=== PATIENT | male | born 1995 | race Asian ===

== ENCOUNTER 2018-11-05 14:13 | Emergency (ER) | payer OTHER, SELFPAY ==
[2018-11-05 14:33] VITALS: BP 95/48; PULSE 57; RESP 16; TEMP 36.8; O2SAT 98
--- NOTE | 2018-11-05 14:38 | DI.RAD_ITS ---
SYMPTOM/DIAGNOSIS: MEDIAL KNEE PAIN, SKIING INJURY LEFT KNEE: Three views. No acute fracture or dislocation is seen. The soft tissues are unremarkable. IMPRESSION: Normal examination.
--- NOTE | 2018-11-05 15:49 | W.ED.GENAD ---
Discharge Plan Disposition Patient Disposition: HOME Condition: Stable Discharge Details Chief Complaint: Orthopedic Clinical Impression: Left knee sprain Primary Care Provider: [facility]itz[facility]Local ED Provider: Jeremy Acosta Home Meds and New Rx's Prescriptions: No Action No Known Home Meds RF: 0 Discharge Instructions Instructions: Knee Sprain (ED), RICE Therapy (ED) Additional Instructions: You may continue to use acetaminophen as needed for discomfort and wear the knee brace at all times for the next 2 weeks. You may slowly advance activity as tolerated and if pain is significant or severe is recommended that you purchase and use crutches for 2-3 days to rest the knee further. Follow-up with a local orthopedist or your primary care doc for reassessment if not improving over the next 2-weeks. Referrals: Primary Care Provider [Outside] Discharge Data Discharge Date/Time-TO BE ENTERED AT DEPARTURE: 11/05/18 15:59 Medical Decision Making Patient presenting the emergency department chief complaint of left knee injury while skiing. This happened a couple hours prior to arrival. Patient has valgus pain with stress to the medial ligament, patient does have medial joint line tenderness. Plan to do radiological imaging rule out acute fracture. Review of imaging and speak with radiologist shows no acute findings. Patient was placed in a hinged knee brace and offered crutches which patient denied at this time. Patient encouraged to rest ice and elevate along with use acetaminophen as needed for discomfort. Return precautions discussed. Patient encouraged to follow-up with orthopedist if not improving over the next couple weeks. After discussion of diagnosis and plan of care patient has no further needs, questions, or concerns and states clear understanding to return to the emergency department for any worsening symptoms. HPI General Date/Time Provider Initiated Documentation: 11/05/18 14:24. Limitations to Documentation: no limitations. Information obtained by: patient and RN notes reviewed. History of Present Illness 23 year old M presents to the emergency department with the chief complaint of left knee injury, described as mild, with intensity rated at 2. Quality is described as sharp, and is localized to the lower extremity. No relieving factors improve symptom(s), Movement worsens symptoms . Patient notes no other symptoms.. Patient did receive the following treatments prior to arrival, none Related Data Home Medications Medication Instructions Recorded Confirmed Unknown [No Known Home Meds] 11/05/18 11/05/18 Allergies Allergy/AdvReac Type Severity Reaction Status Date / Time ibuprofen Allergy Unverified 11/05/18 14:36 General Stated Complaint: Orthopedic TRACY: 4 Review of Systems Cardiovascular Denies syncope Musculoskeletal Reports as per HPI, Denies numbness and Denies tingling Integumentary/Breasts Denies rash, Denies sores and Denies wounds Neurologic Denies syncope, Denies numbness and Denies tingling Exam Const General: cooperative and no acute distress Orientation: alert, awake and oriented x3 Resp Effort & Inspection: normal respiratory effort and able to speak in complete sentences Cardio Rate: regular rate Rhythm: regular rhythm Extrem Left lower extremity: hip/thigh Details: normal to inspection, knee Details: tenderness Location: of the medial joint line, abnormal ROM Details: pain with active ROM; able to extend lower leg actively and knee ligament exam abnormal Details: valgus stress test Details: pain noted, lower leg Details: normal to inspection and ankle Details: normal to inspection Course Vital Signs Temperature 36.8 C 11/05/18 14:33 Pulse 57 L 11/05/18 14:33 Respiratory Rate 16 11/05/18 14:33 Blood Pressure 95/48 L 11/05/18 14:33 Pulse Oximetry 98 11/05/18 14:33 Temperature 36.8 C 11/05/18 14:33 Temperature Source Skin 11/05/18 14:33 Pulse 57 L 11/05/18 14:33 Respiratory Rate 16 11/05/18 14:33 Respiratory Effort Non-Labored 11/05/18 14:33 Blood Pressure 95/48 L 11/05/18 14:33 Blood Pressure Position Sitting 11/05/18 14:33 Pulse Oximetry 98 11/05/18 14:33 Oxygen Delivery Method Room Air 11/05/18 14:33 Oxygen Flow Rate 0 11/05/18 14:33 Pain Level 1 11/05/18 14:33
--- NOTE | 2018-11-05 15:57 | ED.GENADUL_ITS ---
Discharge Plan Disposition Patient Disposition: HOME Condition: Stable Discharge Details Chief Complaint: Orthopedic Clinical Impression: Left knee sprain Primary Care Provider: Mitzi,Local ED Provider: Jeremy Acosta Home Meds and New Rx's Prescriptions: No Action No Known Home Meds RF: 0 Discharge Instructions Instructions: Knee Sprain (ED), RICE Therapy (ED) Additional Instructions: You may continue to use acetaminophen as needed for discomfort and wear the knee brace at all times for the next 2 weeks. You may slowly advance activity as tolerated and if pain is significant or severe is recommended that you purchase and use crutches for 2-3 days to rest the knee further. Follow-up with a local orthopedist or your primary care doc for reassessment if not improving over the next 2-weeks. Referrals: Primary Care Provider [Outside] Discharge Data Discharge Date/Time-TO BE ENTERED AT DEPARTURE: 11/05/18 15:59 Medical Decision Making Patient presenting the emergency department chief complaint of left knee injury while skiing. This happened a couple hours prior to arrival. Patient has valgus pain with stress to the medial ligament, patient does have medial joint line tenderness. Plan to do radiological imaging rule out acute fracture. Review of imaging and speak with radiologist shows no acute findings. Patient was placed in a hinged knee brace and offered crutches which patient denied at this time. Patient encouraged to rest ice and elevate along with use acet aminophen as needed for discomfort. Return precautions discussed. Patient encouraged to follow-up with orthopedist if not improving over the next couple weeks. After discussion of diagnosis and plan of care patient has no further needs, questions, or concerns and states clear understanding to return to the emergency department for any worsening symptoms. HPI General Date/Time Provider Initiated Documentation: 11/05/18 14:24 . Limitations to Documentation: no limitations . Information obtained by: patient and RN notes reviewed . History of Present Illness 23 year old M presents to the emergency department with the chief complaint of left knee injury, described as mild, with intensity rated at 2. Quality is described as sharp, and is localized to the lower extremity. No relieving factors improve symptom(s), Movement worsens symptoms . Patient notes no other symptoms.. Patient did receive the following treatments prior to arrival, none Related Data Home Medications Medication Instructions Recorded Confirmed Unknown [No Known Home Meds] 11/05/18 11/05/18 Allergies Allergy/AdvReac Type Severity Reaction Status Date / Time ibuprofen Allergy Unverified 11/05/18 14:36 General Stated Complaint: Orthopedic TRACY: 4 Review of Systems Cardiovascular Denies syncope Musculoskeletal Reports as per HPI, Denies numbness and Denies tingling Integumentary/Breasts Denies rash, Denies sores and Denies wounds Neurologic Denies syncope, Denies numbness and Denies tingling Exam Const General: cooperative and no acute distress Orientation: alert, awake and oriented x3 Resp Effort & Inspection: normal respiratory effort and able to speak in complete sentences Cardio Rate: regular rate Rhythm: regular rhythm Extrem Left lower extremity: hip/thigh Details: normal to inspection, knee Details: tenderness Location: of the medial joint line, abnormal ROM Details: pain with active ROM; able to extend lower leg actively and knee ligament exam abnormal Details: valgus stress test Details: pain noted, lower leg Details: normal to inspection and ankle Details: normal to inspection Course Vital Signs Temperature 36.8 C 11/05/18 14:33 Pulse 57 L 11/05/18 14:33 Respiratory Rate 16 11/05/18 14:33 Blood Pressure 95/48 L 11/05/18 14:33 Pulse Oximetry 98 11/05/18 14:33 Temperature 36.8 C 11/05/18 14:33 Temperature Source Skin 11/05/18 14:33 Pulse 57 L 11/05/18 14:33 Respiratory Rate 16 11/05/18 14:33 Respiratory Effort Non-Labored 11/05/18 14:33 Blood Pressure 95/48 L 11/05/18 14:33 Blood Pressure Position Sitting 11/05/18 14:33 Pulse Oximetry 98 11/05/18 14:33 Oxygen Delivery Method Room Air 11/05/18 14:33 Oxygen Flow Rate 0 11/05/18 14:33 Pain Level 1 11/05/18 14:33
== END 2018-11-05 15:59 | disposition home or self-care (01) ==
PROVIDERS: Emergency Provider Nurse Practitioner Family
DX: S83.92XA Sprain of unspecified site of left knee, initial encounter (principal); V00.321A Fall from snow-skis, initial encounter
CPT/HCPCS: 29505; 73562; 99283; 99282; L1820